=== PATIENT | male | born 1970 | race Caucasian/White ===

== ENCOUNTER 2017-03-08 03:13 | Emergency (ER) | payer OTHER ==
[~2017-03-08] VITALS: Ht 182.9 cm; Wt 83.9 kg
[2017-03-08] MEDS ORDERED: CYCLOBENZAPRINE10 MG PO (19:39)
== END 2017-03-08 03:44 | disposition home or self-care (01) ==
LOC: ED 03:13
DX: S39.012A Strain of muscle, fascia and tendon of lower back, initial encounter (principal); S29.012A Strain of muscle and tendon of back wall of thorax, initial encounter; F17.200 Nicotine dependence, unspecified, uncomplicated; X58.XXXA Exposure to other specified factors, initial encounter
CPT/HCPCS: 99282

== ENCOUNTER 2017-03-08 17:45 | Emergency (ER) | payer OTHER ==
[~2017-03-08] VITALS: Ht 182.9 cm; Wt 83.9 kg
[2017-03-08] MEDS ORDERED: CYCLOBENZAPRINE10 MG PO (19:39)
== END 2017-03-08 19:56 | disposition home or self-care (01) ==
LOC: ED 17:45
DX: S29.012A Strain of muscle and tendon of back wall of thorax, initial encounter (principal); F17.200 Nicotine dependence, unspecified, uncomplicated; X58.XXXA Exposure to other specified factors, initial encounter
CPT/HCPCS: 99283

== ENCOUNTER 2020-07-11 07:46 | Emergency (ER) | payer OTHER ==
[~2020-07-11] VITALS: Ht 182.9 cm; Wt 83.9 kg
[~2020-07-11 07:46] MED LIST: CYCLOBENZAPRINE10 MG PO
--- OUTSIDE RECORDS SUMMARY | 2020-07-11 07:54 | XMS ---
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 [facility] has no Care Guidelines for this patient. Louise VISIT COUNT (12 MO.) 1 MONIKA Bateman TOTAL 1 NOTE: Visits indicate total known visits. ED/UCC VISIT TRACKING (12 MO.) 07/11/2020 07:47 MONIKA Bennett [place] TYPE: Emergency COMPLAINT: - UPPER ABDOMINAL PAIN INPATIENT VISIT TRACKING (12 MO.) No inpatient visits to display in this time frame [email or web address]
[2020-07-11] MEDS ORDERED: PRILOSEC OTC20 MG PO (11:05)
[2020-07-11] MEDS ORDERED: HYDROCODON-ACE1 EA10 PO (11:05)
== END 2020-07-11 11:23 | disposition home or self-care (01) ==
LOC: ED 07:46
DX: K21.9 Gastro-esophageal reflux disease without esophagitis (principal); F17.200 Nicotine dependence, unspecified, uncomplicated
CPT/HCPCS: 74018; 74177; 76705; 80053; 81001; 83690; 83735; 85025; 96375; 96376; 99284-25; J2270; J2405; J7030; Q9967